=== PATIENT | male | born 1940 | race Two or more races ===

== ENCOUNTER 2023-10-25 16:04 | Inpatient (IN) | payer OTHER ==
[~2023-10-25] VITALS: Ht 152.4 cm; Wt 76.2 kg
[2023-10-25] MEDS ORDERED: ATOR40TA PO (17:09)
[2023-10-25] MEDS ORDERED: POTA8TAB3 PO (17:09)
[2023-10-25] MEDS ORDERED: METF-442 PO (17:09)
[2023-10-25] MEDS ORDERED: METO25TA6 PO (17:09)
[2023-10-25] MEDS ORDERED: SPIR50TA5 PO (17:09)
[2023-10-25] MEDS ORDERED: FURO20TA4 PO (17:09)
[2023-10-25] MEDS ORDERED: LOSA50TA39 PO (17:09)
[2023-10-25] MEDS ORDERED: APIX5TAB PO (17:09)
[2023-10-25] MEDS ORDERED: FINA5TAB11 PO (17:09)
[2023-10-25 17:10] LABS: BASOPHILS % (AUTO) 0.6 % (0.0-2.0); EOSINOPHILS # (AUTO) 0.1 K/uL (0.0-0.7); EOSINOPHILS % (AUTO) 3.4 % (0.0-6.0); HEMATOCRIT 35 % (39-51); LYMPHOCYTES # (AUTO) 1.2 K/uL (0.8-4.8); LYMPHOCYTES % (AUTO) 30.4 % (20.0-44.0); MEAN CORPUSCULAR HEMOGLOBIN 33 PG (26.0-33.0); MEAN CORPUSCULAR HGB CONC 35 g/dl (31.0-36.0); MEAN CORPUSCULAR VOLUME 97 fL (80-96); MONOCYTES # (AUTO) 0.5 K/uL (0.1-1.30); MONOCYTES % (AUTO) 12.9 % (2.0-12.0); NEUTROPHILS # (AUTO) 2.1 K/uL (1.8-8.9); NEUTROPHILS % (AUTO) 52.7 % (43.0-81.0); PLATELET COUNT (AUTO) 91 K/uL (150-450); RED CELL DISTRIBUTION WIDTH 16.3 % (11.5-15.0)
[2023-10-25 17:18] LABS: CALCIUM, SERUM 8.6 mg/dL (8.5-10.1); CARBON DIOXIDE 28 mmol/L (21-32); CHLORIDE 106 mmol/L (98-107); CREATININE 0.8 mg/dL (0.6-1.3); GLUCOSE 94 mg/dL (74-106); POTASSIUM 3.8 mmol/L (3.5-5.1); SODIUM SERUM 137 mmol/L (136-145); UREA NITROGEN, BLOOD 12 mg/dL (7-18)
[2023-10-25 17:25] LABS: ALANINE AMINOTRANSFERASE 53 U/L (12-78); ALBUMIN 2.8 g/dL (3.4-5.0); ASPARTATE AMINOTRANSFERASE 56 U/L (15-37); BILIRUBIN,DIRECT 0.4 mg/dL (0.0-0.2); BILIRUBIN,TOTAL 1.2 mg/dL (0.2-1.0); LIPASE 34 U/L (16-77); TOTAL PROTEIN, SERUM 7.5 g/dL (6.4-8.2)
[2023-10-25 17:39] LABS: ALKALINE PHOSPHATASE 1064 U/L (46-116)
[2023-10-25] MEDS: PIPERACILLIN /TAZOBACTAM 3.375 G in IV D5W 50 ML IV ONE (18:57)
[2023-10-25 20:11] LABS: BAND % (MANUAL) 1 % (0.0-5.0); LYMPHOCYTES % (MANUAL) 32 % (16-48); MONOCYTES % (MANUAL) 17 % (0-11.0); NEUTROPHILS % (MANUAL) 50 (42-76)
[2023-10-25 20:12] LABS: ANISOCYTOSIS 1+; PLATELET ESTIMATE DECREASED
[2023-10-25] MEDS ORDERED: ONDANSETRON HCL/PF 4 MG/2 ML VIAL IVP PRN (23:30)
[2023-10-25] MEDS ORDERED: MAG HYDROX/AL HYDROX/SIMETH 30 ML UDC PO PRN (23:30)
[2023-10-25] MEDS ORDERED: ACETAMINOPHEN 325 MG TABLET PO PRN (23:30)
[2023-10-25] MEDS ORDERED: MAGNESIUM HYDROXIDE 30 ML UDC PO PRN (23:30)
[2023-10-25] MEDS ORDERED: Z GUARD REMEDY 4 OZ OINT TP PRN (23:30)
[2023-10-25] MEDS ORDERED: ZOLPIDEM TARTRATE 5 MG TABLET PO PRN (23:30)
[2023-10-26] VITALS: BP 128/80; TEMP 97.9; O2SAT 98
[2023-10-26 04:00] VITALS: BP 103/59; TEMP 98; O2SAT 100
[2023-10-26] MEDS ORDERED: PIPERACILLIN /TAZOBACTAM 2.25 G in IV D5W 50 ML IV SCH (05:00)
[2023-10-26 07:36] LABS: MAGNESIUM 1.8 mg/dL (1.8-2.4); PHOSPHORUS 3.4 mg/dL (2.5-4.9)
[2023-10-26 08:00] VITALS: BP 122/74; TEMP 98.4; O2SAT 98
[2023-10-26] MEDS: PANTOPRAZOLE 40 MG TABLET.DR PO SCH (08:19)
[2023-10-26] MEDS: PIPERACILLIN /TAZOBACTAM 3.375 G in IV D5W 100 ML IV SCH (08:20)
[2023-10-26] MEDS: POTASSIUM CHLORIDE 10 MEQ TABLET.SA PO SCH (08:20)
[2023-10-26] MEDS: FUROSEMIDE 20 MG TABLET PO SCH (08:20)
[2023-10-26] MEDS: FINASTERIDE (5 MG) 5 MG TABLET PO SCH (08:20)
[2023-10-26] MEDS: ATORVASTATIN 40 MG TABLET PO SCH (08:21)
[2023-10-26] MEDS: LOSARTAN POTASSIUM 50 MG TABLET PO SCH (08:21)
[2023-10-26] MEDS: METFORMIN 500 MG TABLET PO SCH (08:21)
[2023-10-26] MEDS: METOPROLOL TARTRATE 25 MG TABLET PO SCH (08:21)
[2023-10-26] MEDS: APIXABAN 5 MG TABLET PO SCH (08:23)
[2023-10-26 08:29] LABS: CARBON DIOXIDE 26 mmol/L (21-32); CHLORIDE 106 mmol/L (98-107); POTASSIUM 4.1 mmol/L (3.5-5.1); SODIUM SERUM 138 mmol/L (136-145)
[2023-10-26 08:31] LABS: CALCIUM, SERUM 8.5 mg/dL (8.5-10.1); CREATININE 0.7 mg/dL (0.6-1.3); GLUCOSE 109 mg/dL (74-106); UREA NITROGEN, BLOOD 13 mg/dL (7-18)
[2023-10-26] MEDS: SPIRONOLACTONE 25 MG TABLET PO SCH (08:51)
[2023-10-26] MEDS ORDERED: SPIRONOLACTONE 50 MG TABLET PO SCH (09:00)
[2023-10-26 10:01] LABS: BASOPHILS % (AUTO) 0.9 % (0.0-2.0); EOSINOPHILS # (AUTO) 0.1 K/uL (0.0-0.7); EOSINOPHILS % (AUTO) 3.4 % (0.0-6.0); HEMATOCRIT 33 % (39-51); HEMOGLOBIN 11.4 g/dL (13.5-17.5); LYMPHOCYTES # (AUTO) 1.2 K/uL (0.8-4.8); LYMPHOCYTES % (AUTO) 29.7 % (20.0-44.0); MEAN CORPUSCULAR HEMOGLOBIN 33 PG (26.0-33.0); MEAN CORPUSCULAR HGB CONC 34 g/dl (31.0-36.0); MEAN CORPUSCULAR VOLUME 97 fL (80-96); MONOCYTES # (AUTO) 0.5 K/uL (0.1-1.30); MONOCYTES % (AUTO) 13.6 % (2.0-12.0); NEUTROPHILS # (AUTO) 2.1 K/uL (1.8-8.9); NEUTROPHILS % (AUTO) 52.4 % (43.0-81.0); PLATELET COUNT (AUTO) 85 K/uL (150-450); RED BLOOD CELL COUNT(AUTO) 3.42 MIL/uL (4.5-6.0); RED CELL DISTRIBUTION WIDTH 15.9 % (11.5-15.0)
[2023-10-26 12:00] VITALS: BP 116/78; TEMP 98; O2SAT 98
[2023-10-26 15:10] LABS: ANISOCYTOSIS 1+; EOSINOPHILS % (MANUAL) 5 % (0-4); LYMPHOCYTES % (MANUAL) 27 % (16-48); MONOCYTES % (MANUAL) 9 % (0-11.0); NEUTROPHILS % (MANUAL) 59 (42-76); PLATELET ESTIMATE DECREASED
[2023-10-26 16:00] VITALS: BP 116/78; TEMP 98.1; O2SAT 98
[2023-10-26 16:04] LABS: INR 1.13 (0.91-1.10); PARTIAL THROMBOPLASTIN TIME 30.5 SEC (24.3-34.3); PROTHROMBIN TIME 11.9 SECS (9.2-11.1)
[2023-10-26 20:00] VITALS: BP 113/72; TEMP 97.4; O2SAT 96
[2023-10-27] VITALS: BP 127/75; TEMP 98.3; O2SAT 99
[2023-10-27 04:00] VITALS: BP 128/59; TEMP 97.5; O2SAT 97
[2023-10-27 06:56] LABS: BASOPHILS % (AUTO) 0.6 % (0.0-2.0); EOSINOPHILS # (AUTO) 0.1 K/uL (0.0-0.7); EOSINOPHILS % (AUTO) 3.1 % (0.0-6.0); HEMATOCRIT 33 % (39-51); HEMOGLOBIN 11.6 g/dL (13.5-17.5); LYMPHOCYTES # (AUTO) 1.5 K/uL (0.8-4.8); LYMPHOCYTES % (AUTO) 33.9 % (20.0-44.0); MEAN CORPUSCULAR HEMOGLOBIN 34 PG (26.0-33.0); MEAN CORPUSCULAR HGB CONC 35 g/dl (31.0-36.0); MEAN CORPUSCULAR VOLUME 96 fL (80-96); MONOCYTES # (AUTO) 0.5 K/uL (0.1-1.30); MONOCYTES % (AUTO) 11.9 % (2.0-12.0); NEUTROPHILS # (AUTO) 2.2 K/uL (1.8-8.9); NEUTROPHILS % (AUTO) 50.5 % (43.0-81.0); PLATELET COUNT (AUTO) 89 K/uL (150-450); RED BLOOD CELL COUNT(AUTO) 3.42 MIL/uL (4.5-6.0); RED CELL DISTRIBUTION WIDTH 16.2 % (11.5-15.0); RETICULOCYTE COUNT 1.7 % (0.6-2.5); WHITE BLOOD COUNT (AUTO) 4.3 K/uL (4.3-11.0)
[2023-10-27 07:32] LABS: FERRITIN 158 ng/mL (8-388); IRON, SERUM 71 ug/dl (50-175)
[2023-10-27 07:35] LABS: CALCIUM, SERUM 8.4 mg/dL (8.5-10.1); CARBON DIOXIDE 22 mmol/L (21-32); CHLORIDE 108 mmol/L (98-107); CREATININE 0.8 mg/dL (0.6-1.3); GLUCOSE 103 mg/dL (74-106); POTASSIUM 3.8 mmol/L (3.5-5.1); SODIUM SERUM 140 mmol/L (136-145); UREA NITROGEN, BLOOD 16 mg/dL (7-18)
[2023-10-27 08:00] VITALS: BP 131/66; TEMP 98.6; O2SAT 97
[2023-10-27 11:52] LABS: ANISOCYTOSIS 1+; BAND % (MANUAL) 2 % (0.0-5.0); BASOPHILS % (MANUAL) 0 % (0.0-2.0); EOSINOPHILS % (MANUAL) 2 % (0-4); LYMPHOCYTES % (MANUAL) 29 % (16-48); MONOCYTES % (MANUAL) 10 % (0-11.0); NEUTROPHILS % (MANUAL) 57 (42-76); PLATELET ESTIMATE DECREASED
[2023-10-27 12:00] VITALS: BP 116/75; TEMP 98.8; O2SAT 99
[2023-10-27] MEDS ORDERED: AMIN946L5 PO (12:46)
[2023-10-27 16:00] VITALS: BP 109/56; TEMP 98.6; O2SAT 100
[2023-10-27 16:14] VITALS: BP 109/56
[2023-10-28 10:11] LABS: FOLIC ACID 11.9 ng/mL (>3.0); HBSAG SCREEN Negative (Negative); HEPATITIS A AB, IgM Negative (Negative); HEPATITIS A AB, TOTAL Positive (Negative); HEPATITIS B CORE AB, IgM Negative (Negative); HEPATITIS B CORE AB, TOTAL Negative (Negative)
== END 2023-10-27 20:05 | disposition home or self-care (01) | DRG 433 ==
LOC: ER 16:04 → TELE1 20:52
PROVIDERS: ADMIT Nurse Practitioner Family; ATTEND Nurse Practitioner Acute Care
DX: K74.60 Unspecified cirrhosis of liver (principal); I13.0 Hypertensive heart and chronic kidney disease with heart failure and stage 1 through stage 4 chronic kidney disease, or unspecified chronic kidney disease; K76.6 Portal hypertension; R18.8 Other ascites; I48.20 Chronic atrial fibrillation, unspecified; K52.9 Noninfective gastroenteritis and colitis, unspecified; N18.9 Chronic kidney disease, unspecified; N40.0 Benign prostatic hyperplasia without lower urinary tract symptoms; I50.9 Heart failure, unspecified; E11.22 Type 2 diabetes mellitus with diabetic chronic kidney disease; E78.5 Hyperlipidemia, unspecified; I25.10 Atherosclerotic heart disease of native coronary artery without angina pectoris; I48.91 Unspecified atrial fibrillation; K42.9 Umbilical hernia without obstruction or gangrene; Z79.01 Long term (current) use of anticoagulants; Z79.84 Long term (current) use of oral hypoglycemic drugs; K31.89 Other diseases of stomach and duodenum; K57.30 Diverticulosis of large intestine without perforation or abscess without bleeding; M88.9 Osteitis deformans of unspecified bone; I86.4 Gastric varices
CPT/HCPCS: 36415; 76705-TC; 80048-TC; 80076-TC; 82607-TC; 82728-TC; 83540-TC; 83690-TC; 83735-TC; 84100-TC; 84484-TC; 85025-TC; 85045-TC; 85610-TC; 85730-TC; 86704; 86705; 86709-TC; A4223; G0378; J2543; J7030; J7040; J7060